=== PATIENT | female | born 1950 | race African-American/Black ===

== ENCOUNTER 2024-11-21 14:17 | Emergency (ER) | payer MEDICARE, MEDICAID ==
[~2024-11-21] VITALS: Ht 170.2 cm; Wt 91.0 kg
[2024-11-21 14:28] VITALS: TEMP 36.9; O2SAT 99
[2024-11-21 16:56] LABS: BASOPHILS % 0.2 % (0.0-2.0); EOSINOPHILS % 2.1 % (0.0-5.0); HEMATOCRIT. 44.0 % (36.0-48.0); HEMOGLOBIN. 14.4 g/dL (12.0-16.0); LYMPHOCYTES % 14.5 % (20.0-50.0); MEAN PLATELET VOLUME 9.6 fl (7.4-10.4); MONOCYTES % 7.3 % (2.0-8.0); NEUTROPHILS % 75.9 % (40.0-76.0); PLATELET 191 x1000/uL (130-400); RED BLOOD CELL COUNT 5.18 mill/uL (4.2-5.4); RED CELL DISTRIBUTION WIDTH 15.3 % (11.6-14.6)
[2024-11-21 17:13] LABS: CREATININE 0.7 mg/dL (0.6-1.0); UREA NITROGEN BLOOD 14 mg/dL (9-23)
[2024-11-21 17:36] LABS: ERYTHROCYTE SEDIMENTATION RATE 34 mm/hr (0-30)
[2024-11-21] MEDS ORDERED: SULF1TAB48 MT (17:48)
[2024-11-21] MEDS ORDERED: AMOX1TAB16 MT (17:48)
[2024-11-21 18:00] VITALS: BP 169/97; PULSE 91; RESP 18; O2SAT 100
== END 2024-11-21 18:01 | disposition home or self-care (01) ==
LOC: ER 14:42
DX: L03.011 Cellulitis of right finger (principal); E78.5 Hyperlipidemia, unspecified; Z79.899 Other long term (current) drug therapy
CPT/HCPCS: 10060; 36415; 73130; 80048; 85025; 85651; 99284